=== PATIENT | male | born 1965 | race Caucasian/White ===

== ENCOUNTER 2021-03-24 02:28 | Day surgery (SDC) | payer OTHER, SELFPAY ==
[2021-03-06 14:40] VITALS: BMI 33.5
[2021-03-24 12:14] VITALS: BP 143/97; PULSE 83; RESP 20; TEMP 36.5; O2SAT 98
[2021-03-24] MEDS: LACTATED RINGERS 1,000 ML 150 ML IV CONT (12:17)
--- NOTE | 2021-03-24 12:33 | WPDGICN ---
Assessment and Plan Assessment and plan (1) Family hx of colon cancer: Code(s): Z80.0 - Family history of malignant neoplasm of digestive organs Status: Acute Assessment and Plan: Patient's family history is significant his sister had colon cancer. Plan is for surveillance colonoscopy now and at 5 year intervals in the future. GI Consult Note Consult date/time: 03/24/21 12:33 HPI: Deion Savage is a 55 year old male Presents for neoplasia screening. Patient states that his current weight appetite bowel movements normal. He denies abdominal pain. He has had no bleeding. His last colonoscopy was at least 5 years ago perhaps 10 years ago he states. Family history is significant that his sister with colon cancer at age 55. Patient presents today for screening colonoscopy. Review of Systems Review of Systems: All systems reviewed & are unremarkable except as noted in HPI and below PMFSH Past Medical History Medical History (Updated 03/24/21 @ 12:34 by Jose Luis Crawford MD) Allergies Surgical History Surgical History (Updated 09/10/20 @ 08:25 by Amirah Cornejo CMA) History of hernia surgery Family History Family History (Updated 09/10/20 @ 08:27 by Amirah Cornejo CMA) Father Heart disease Sibling Carcinoma of colon Heart disease Grandparent Cancer Social History Social History (Updated 09/10/20 @ 08:31 by Amirah Cornejo CMA) Smoking status: Never smoker Alcohol intake: current Drinks per week: 7 Alcohol use details: Sometimes none, sometimes 1 glass or 1 Beer a day Substance use: never Substance use type: does not use Living arrangements: with family Spiritual care concerns: No Meds Home Medications and Allergies Home Medications Medication Instructions Recorded Confirmed Type cholecalciferol (vitamin D3) 25 25 mcg PO DAILY 09/10/20 03/24/21 History mcg (1,000 unit) capsule multivitamin 1 tablet PO DAILY 09/10/20 03/24/21 History Allergies Allergy/AdvReac Type Severity Reaction Status Date / Time latex Allergy Mild Itchy Verified 03/24/21 12:11 aspirin AdvReac Mild Hives Verified 03/24/21 12:11 Vital Signs Vital Signs - 24 hr 03/24/21 12:14 Temperature 97.7 F Pulse Rate 83 Respiratory Rate 20 Blood Pressure 143/97 H Pulse Oximetry 98 Exam Narrative: Physical exam reveals patient be alert. Vital signs stable. HEENT exam is unremarkable. Patient is anicteric. Lungs are clear to auscultation and percussion. Heart is without murmur or extra sounds. Abdominal exam bowel sounds present soft nontender with no organomegaly. Digital external rectal exam normal.
--- NOTE | 2021-03-24 12:59 | WPDANESEPPF ---
Anes - Initial Pre Proc Eval Procedure: Operation Date: 03/24/21 13:30 Proposed Procedures p Screening Colonoscopy - Jose Luis Crawford MD Date/Time: 03/24/21 12:59 Surgeon: Jose Luis Crawford MD Pre Op Diagnosis: neoplasm screening Patient Data Age: 55 Gender: M Height: 1.8 m Weight: 110.7 kg Last Vital Signs Temp 97.7 F 03/24/21 12:14 Pulse 83 03/24/21 12:14 Resp 20 03/24/21 12:14 BP 143/97 H 03/24/21 12:14 Pulse Ox 98 03/24/21 12:14 Allergies Allergy/AdvReac Type Severity Reaction Status Date / Time latex Allergy Mild Itchy Verified 03/24/21 12:11 aspirin AdvReac Mild Hives Verified 03/24/21 12:11 Home Medications Medication Instructions Recorded Confirmed Type cholecalciferol (vitamin D3) 25 25 mcg PO DAILY 09/10/20 03/24/21 History mcg (1,000 unit) capsule multivitamin 1 tablet PO DAILY 09/10/20 03/24/21 History Patient hx anesthesia problems: none Family hx anesthesia problems: none Results Review: All pre-operative results and documents have been reviewed as part of the pre-operative evaluation. [facility] Past Medical History Medical History (Updated 03/24/21 @ 12:59 by Gama Domínguez MD) Allergies Palpitations Surgical History Surgical History (Updated 09/10/20 @ 08:25 by Amirah Cornejo CMA) History of hernia surgery Family History Family History (Updated 09/10/20 @ 08:27 by Amirah Cornejo CMA) Father Heart disease Sibling Carcinoma of colon Heart disease Grandparent Cancer Social History Social History (Updated 09/10/20 @ 08:31 by Amirah Cornejo CMA) Smoking status: Never smoker Alcohol intake: current Drinks per week: 7 Alcohol use details: Sometimes none, sometimes 1 glass or 1 Beer a day Substance use: never Substance use type: does not use Living arrangements: with family Spiritual care concerns: No Anes - Eval Final PreProcedure Day of Procedure 03/24/21 12:59 Patient weight: obese Heart: regular rate and rhythm Lungs: clear to auscultation Airway: Mallampati scale class III Neurological: alert and oriented Last oral intake: >/= 8 hours ASA classification: II Emergent: no Anesthetic plan: proceed Anesthesia type and monitoring: general GIVS and standard monitoring Results Review: All pre-operative results and documents have been reviewed as part of the pre-operative evaluation. Informed Consent: The patient's anesthetic plan and its attendant risks and benefits were discussed with the patient/family/POA. Questions were solicited and answers provided to the satisfaction of the patient/family/POA.
[2021-03-24] MEDS: SIMETHICONE ORAL SUSPENSION 20 MG/0.3 ML 30 ML BOTTLE 0.6 ML IRRIGATION (13:53)
[2021-03-24 14:01] VITALS: BP 116/79; PULSE 74; RESP 17; O2SAT 97
[2021-03-24 14:11] VITALS: BP 114/75; PULSE 67; RESP 13; O2SAT 98
[2021-03-24 14:21] VITALS: BP 123/84; PULSE 63; RESP 13; O2SAT 100
== END 2021-03-24 14:40 | disposition home or self-care (01) ==
PROVIDERS: PCP Internal Medicine; Visit Provider Internal Medicine Gastroenterology
PROC: 0DJD8ZZ Inspection of Lower Intestinal Tract, Via Natural or Artificial Opening Endoscopic (ICD-10-PCS; CPT 45378; principal; 2021-03-24 13:30)
DX: Z12.11 Encounter for screening for malignant neoplasm of colon (principal); K64.8 Other hemorrhoids; K57.30 Diverticulosis of large intestine without perforation or abscess without bleeding; Z80.0 Family history of malignant neoplasm of digestive organs; E66.9 Obesity, unspecified; Z68.34 Body mass index [BMI] 34.0-34.9, adult
CPT/HCPCS: 45378; J2704; J7120